=== PATIENT | male | born 1995 | race Two or more races ===

== ENCOUNTER 2023-01-03 19:33 | Emergency (ER) | payer OTHER ==
[~2023-01-03] VITALS: Ht 182.9 cm; Wt 83.0 kg
[2023-01-03] MEDS ORDERED: KETOROLAC TROMETHAMINE 30 MG INJ IVP ONE (20:15)
[2023-01-03] MEDS ORDERED: PROCHLORPERAZINE EDISYLATE 10 MG/2 ML VIAL IV ONE (20:15)
[2023-01-03] MEDS ORDERED: IV NORMAL SALINE 1000 ML BAG IV ONE (20:15)
[2023-01-03 20:20] LABS: HEMATOCRIT 45.9 % (36.7-47.1); MEAN CORPUSCULAR HEMOGLOBIN 29.3 uug (23.8-33.4); MEAN CORPUSCULAR VOLUME 85.8 fL (73.0-96.2); PLATELET COUNT (AUTO) 238 K/uL (152-348)
--- NOTE | 2023-01-03 20:22 | NUR ---
BIB family member, informed of plan of care, no s/s of any distress noted at this time. ER provider at bedside for exam. #20g established in left ac, blood collected and sent to lab, bedside EKG done for MD review, will continue to monitor.
[2023-01-03] MEDS ORDERED: PROCHLORPERAZINE EDISYLATE 10 MG/2 ML VIAL ONE (20:27)
[2023-01-03] MEDS ORDERED: KETOROLAC TROMETHAMINE 30 MG INJ ONE (20:27)
--- NOTE | 2023-01-03 20:39 | NUR ---
Patient has been medicated as per order, IVF infusing well, will continue to monitor.
[2023-01-03 20:40] LABS: CARBON DIOXIDE 29 mmol/L (21-32); CHLORIDE 105 mmol/L (98-107); POTASSIUM 3.9 mmol/L (3.5-5.1); UREA NITROGEN, BLOOD 13 mg/dL (7-18)
[2023-01-03] MEDS ORDERED: BUTA1CAP46 PO (20:55)
[2023-01-03] MEDS ORDERED: ASPI-966 PO (21:15)
--- NOTE | 2023-01-03 21:15 | NUR ---
ACI given, HL removed, remains stable for discharge home.
[2023-01-03 21:18] VITALS: BP 125/72; O2SAT 98
== END 2023-01-03 21:24 | disposition home or self-care (01) ==
LOC: ER 19:33
DX: R51.9 Headache, unspecified (principal); Z79.82 Long term (current) use of aspirin; Z79.899 Other long term (current) drug therapy
CPT/HCPCS: 99284; 96374; 96361; 96375; 80048; 85025; 84484; 36415; 93005; J1885; J0780; J7040; A4663

== ENCOUNTER 2023-01-07 21:39 | Emergency (ER) | payer OTHER ==
[~2023-01-07] VITALS: Ht 182.9 cm; Wt 83.9 kg
[~2023-01-07 21:39] MED LIST: ASPI-966 PO
--- NOTE | 2023-01-07 22:04 | NUR ---
Dr. Barajas at bedside for MSE.
[2023-01-07] MEDS ORDERED: KETOROLAC TROMETHAMINE 30 MG INJ ONE (22:13)
[2023-01-07] MEDS ORDERED: diphenhydrAMINE 50 MG/1 ML VIAL ONE (22:13)
[2023-01-07] MEDS ORDERED: METOCLOPRAMIDE HCL 10 MG/2 ML VIAL ONE (22:13)
[2023-01-07] MEDS ORDERED: IV NS 1000 ML 1,000 ML IV ONE (22:15)
[2023-01-07] MEDS ORDERED: diphenhydrAMINE 50 MG/1 ML VIAL IV ONE (22:15)
[2023-01-07] MEDS ORDERED: KETOROLAC TROMETHAMINE 30 MG INJ IVP ONE (22:15)
[2023-01-07] MEDS ORDERED: METOCLOPRAMIDE HCL 10 MG/2 ML VIAL IV ONE (22:15)
--- NOTE | 2023-01-07 22:19 | NUR ---
Pt refused toradol.
[2023-01-07 22:22] LABS: HEMATOCRIT 42.6 % (36.7-47.1); MEAN CORPUSCULAR HEMOGLOBIN 29.4 uug (23.8-33.4); MEAN CORPUSCULAR VOLUME 85.5 fL (73.0-96.2); PLATELET COUNT (AUTO) 217 K/uL (152-348)
[2023-01-07 22:27] LABS: CREATININE 0.8 mg/dL (0.6-1.3); POTASSIUM 3.7 mmol/L (3.5-5.1)
[2023-01-07] MEDS ORDERED: PROC-11 PO (23:56)
[2023-01-07] MEDS ORDERED: NAPR-1009 PO (23:56)
[2023-01-07] MEDS ORDERED: SUMA100T16 PO (23:56)
[2023-01-08 00:01] VITALS: BP 125/78; O2SAT 99
--- NOTE | 2023-01-08 00:01 | NUR ---
Patient discharged to home in stable condition. Written and verbal after care instructions given. Patient verbalizes understanding of instructions. Stressed follow up or return to ER for worsening s/s. Patient out of ER with steady gait, no acute signs of distress, VSS, all belongings taken, IV site discontinued, provided with copies of lab results.
== END 2023-01-08 00:02 | disposition home or self-care (01) ==
LOC: ER 21:48
DX: G43.909 Migraine, unspecified, not intractable, without status migrainosus (principal); Z79.899 Other long term (current) drug therapy
CPT/HCPCS: 99284; 96374; 96361; 96375; 80048; 83735; 85025; 85651; 36415; J1200; J1885; J2765; J7040; A4663